=== PATIENT | female | born 1960 | race Caucasian/White ===

== ENCOUNTER → 2017-01-15 | Outpatient (CLI) | payer BC, OTHER | LOC: KOH-I 10:15 | DX: R60.0 Localized edema (principal); I82.432 Acute embolism and thrombosis of left popliteal vein | CPT/HCPCS: 93971 ==

== ENCOUNTER → 2020-09-28 | Outpatient (CLI) | payer BC ==
[~2020-09-28] MED LIST: ALLEGRA ALLERG180 MG PO; BROVANA15 MCG/2 M INH; CYMBALTA60 MG PO; ELIQUIS5 MG PO; ESOMEPRAZOLE MA40 MG PO; FLONASE 0.05% N16 GM; GLUCOTROL XL 22.5 MG PO; HYDRALAZINE HCL25 MG PO; LASIX40 MG PO; NORVASC 5 MG TAB5 MG PO; ONCE DAILY1 EACH PO; PERFOROMIS20 MCG/2 M INH; PROAIR HFA8.5 GM INH; SINGULAIR10 MG PO; TRESIBA100 UNIT/1 SC; VITAMIN B COMP1 EAC1 PO
[2020-09-28 08:09] LABS: HEMOGLOBIN 12.5 gm/dl (12.3-15.3); RED BLOOD COUNT 4.83 M/UL (4.00-5.10); WHITE BLOOD COUNT 8.4 K/UL (4.5-11.0)
[2020-09-28 08:16] LABS: BUN/CREATININE RATIO 25 (0-10)
[2020-09-29 06:44] LABS: CREATININE, URINE 72.2 mg/dL (Not Estab.)
== END ==
LOC: LAB 07:04
PROVIDERS: Nurse Practitioner
DX: I10 Essential (primary) hypertension (principal); E11.65 Type 2 diabetes mellitus with hyperglycemia; J44.9 Chronic obstructive pulmonary disease, unspecified; I51.9 Heart disease, unspecified
CPT/HCPCS: 80053; 80061; 82043; 82570; 82607; 83036; 83880; 84443; 85027

== ENCOUNTER → 2022-01-29 | Outpatient (CLI) | payer BC | LOC: HEART 5 09:45 | DX: U07.1 COVID-19 (principal) | CPT/HCPCS: 93306 ==